=== PATIENT | female | born 1960 | race Caucasian/White ===

== ENCOUNTER 2021-01-03 04:29 | Day surgery (SDC) | payer OTHER ==
[2021-01-02 11:31] VITALS: BMI 35.5
[2021-01-03] MEDS ORDERED: BUPIVACAINE HCL/PF 0.5% (5MG/ML) 10 ML VIAL ONE (07:08)
[2021-01-03] MEDS ORDERED: PROPOFOL 20 ML ONE ×4 (07:50)
[2021-01-03] MEDS ORDERED: MIDAZOLAM HCL 2 MG/2 ML SINGLE DOSE VIAL ONE (07:50)
[2021-01-03] MEDS ORDERED: LIDOCAINE HCL/PF 2% SDV 5ML VIAL ONE (07:52)
[2021-01-03] MEDS ORDERED: CLINDAMYCIN PHOSPHATE 600 MG/4 ML VIAL ONE (08:17)
[2021-01-03] MEDS ORDERED: CLINDAMYCIN 600 MG PREMIX BAG IVPB ONE (08:18)
[2021-01-03] MEDS ORDERED: DEXAMETHASONE SOD PHOSPHATE 4 MG/1 ML VIAL ONE (08:19)
[2021-01-03] MEDS ORDERED: LIDOCAINE HCL 1%, 10 MG/ML (20ML VIAL) NR ONE ×2 (08:35)
[2021-01-03] MEDS ORDERED: BUPIVACAINE HCL/PF 0.5% (5MG/ML) 10 ML VIAL IJ ONE ×2 (09:26)
[2021-01-03] MEDS ORDERED: KETOROLAC TROMETHAMINE 30 MG/1 ML VIAL ONE (09:55)
[2021-01-03] MEDS ORDERED: ONDANSETRON 4 MG/2 ML VIAL IVPUSH PRN (10:27)
[2021-01-03] MEDS ORDERED: oxyCODONE HCL 5 MG TABLET PO PRN (10:27)
[2021-01-03] MEDS ORDERED: PROMETHAZINE HCL 25 MG/1 ML VIAL IVPB PRN (10:27)
[2021-01-03] MEDS ORDERED: LACTATED RINGERS SOLUTION 1,000 ML IV SCH (10:30)
[2021-01-03] MEDS ORDERED: ONDANSETRON 4 MG/2 ML VIAL ONE (11:50)
[2021-01-03 13:54] VITALS: BP 152/78; PULSE 60; TEMP 97.8
== END 2021-01-03 14:12 | disposition home or self-care (01) ==
LOC: JASU-SURG 04:29
PROVIDERS: ATTEND Podiatrist Foot Surgery
PROC: 0QBQ0ZZ Excision of Right Toe Phalanx, Open Approach (ICD-10-PCS; 2021-01-03)
PROC: 0QBR0ZZ Excision of Left Toe Phalanx, Open Approach (ICD-10-PCS; principal; 2021-01-03 08:00)
DX: M20.12 Hallux valgus (acquired), left foot (principal); M20.11 Hallux valgus (acquired), right foot; M21.622 Bunionette of left foot; M21.621 Bunionette of right foot
CPT/HCPCS: 88304-TC; 88311-TC; 94760